=== PATIENT | female | born 1965 | race Two or more races ===

== ENCOUNTER 2016-08-25 16:02 | Emergency (ER) | payer MEDICAID ==
[~2016-08-25 16:02] MED LIST: AUGMENTIN 875-11 TAB PO; CARAFATE1 G2 PO; CIPRO500 MG PO; CLARITIN10 M8 PO; COLACE100 MG PO; COUMADIN5 MG PO; COUMADIN7.5 MG PO; CYCLOBENZAPRINE10 M1 PO; DOC-Q-LACE100 M2 PO; DULCOLAX10 MG/SUPP RC; FAMOTIDINE20 MG; FLEXERIL10 MG; FLEXERIL10 MG PO; GUAIFENESIN-COD10 ML PO; HYDROCODON-ACE1 EAC7 PO; HYDROCODON-ACE1 EACH PO; JANUVIA PO; JANUVIA100 M1 PO; LIDOCAIN PATCH; LORTAB 10/5001 EA PO; LYRICA75 MG PO; LYRICA75 MG/CAP PO; MACROBID100 MG/CAP PO; METFORMIN HCL500 M2 PO; METFORMIN PO; MIRALAX12 EA PO; MOBIC7.5 M1 PO; NEXIUM20 MG PO; NORCO 10-325 T1 EACH PO; NORCO 10/325 TA1 TAB PO; NORCO 5-325 TA1 EACH PO; NORCO 5/325 TAB1 TAB PO; NORCO 7.5/325 T1 TAB; NORCO 7.5/325 T1 TAB PO; OMEPRAZOLE20 M2 PO; OMEPRAZOLE20 M3 PO; PEN-VEE K500 MG PO; PERCOCET 5/3251 TAB PO; PREDNISONE20 M1 PO; Q-PAP325 MG PO; ROBITUSSIN COU118 M8 PO; SENNA LAX8.6 M1 PO; SENNA LAX8.6 MG PO; SINGULAIR10 M1 PO; SINGULAIR10 MG PO; SYNTHROID50 MC1 PO; TRAMADOL HCL50 MG PO; TYLENOL #31 TA2 PO; TYLENOL325 MG PO; ULTRAM50 MG PO; VENTOLIN HFA18 G2 PO; VICODIN 5/500 T1 TAB PO; WARFARIN SODIUM5 MG; ZITHROMAX250 M1 PO
[2016-08-25] MEDS ORDERED: QVAR8.7 G1 INH (16:48)
[2016-08-25] MEDS ORDERED: VITAMIN D350000 UNI1 PO (16:49)
[2016-08-25] MEDS ORDERED: FLUTICASONE PRO16 G1 (17:04)
[2016-08-25 17:19] LABS: BASO % 0.5 % (0-2); EOS % 2.1 % (0-7); EOSINOPHIL ABSOLUTE COUNT 0.2 tho/cmm (0.0-0.7); HCT-HEMATOCRIT 34.6 % (34.0-49.0); HGB-HEMOGLOBIN 11.4 gm/dl (12.0-15.5); IMMATURE GRANULOCYTES ABSOLUTE 0.01 tho/cmm (0-0.03); IMMATURE GRANULOCYTES PERCENT 0.1 % (0-0.3); LYMPH % 25.4 % (20-45); LYMPH ABSOLUTE COUNT 1.9 tho/cmm (0.8-4.5); MCH (MEAN CORPUSCULAR HGB) 28.9 pg (28.0-32.0); MCHC MEAN CORPUSCULAR HGB CONC 32.9 % (32.0-36.0); MCV (MEAN CELL VOLUME) 87.8 fl (82.0-96.0); MEAN PLATELET VOLUME 9.6 cmc (9.4-12.4); MONOCYTE ABSOLUTE COUNT 0.5 tho/cmm (0.0-1.2); NEUTROPHIL ABSOLUTE COUNT 4.7 tho/cmm (1.6-8.0); NEUTROPHIL-AUTOMATED 4.7 tho/cmm (1.6-8.0); NEUTROPHILS % 64.9 % (40-80); PLATELET COUNT 247 tho/cmm (150-450); RED BLOOD COUNT 3.94 mil/cmm (4.00-5.20); WHITE BLOOD COUNT 7.3 tho/cmm (4.0-10.0)
[2016-08-25 17:24] LABS: ANION GAP 13 mmol/L (0-20); BLOOD UREA NITROGEN 16 mg/dl (6-24); CARBON DIOXIDE-VENOUS 26 mmol/L (22-32); CHLORIDE 105 mmol/l (96-110); CREATININE 0.87 mg/dl (0.50-1.10); GLUCOSE 132 mg/dL (70-110); POTASSIUM 4.2 mmol/L (3.7-5.1); SODIUM 140 mmol/L (135-145); eGFR VALUE FOR BLACK >90 mL/Min
[2016-08-25] MEDS ORDERED: LIDODERM1 EACH TP (17:51)
== END 2016-08-25 18:08 ==
LOC: EDMED 16:02
PROVIDERS: Emergency Medicine
DX: M79.662 Pain in left lower leg (principal); E11.9 Type 2 diabetes mellitus without complications; I10 Essential (primary) hypertension; Z86.718 Personal history of other venous thrombosis and embolism; Z79.899 Other long term (current) drug therapy

== ENCOUNTER 2016-09-04 19:12 | Emergency (ER) | payer MEDICAID ==
[~2016-09-04 19:12] MED LIST changes: +FLUTICASONE PRO16 G1; +LIDODERM1 EACH TP; +QVAR8.7 G1 INH; +VITAMIN D350000 UNI1 PO
[2016-09-04] MEDS ORDERED: ERYTHROMYCIN1 GM LEFT EYE (20:03)
== END 2016-09-04 20:15 ==
LOC: EDMED 19:12
DX: H57.8 Other specified disorders of eye and adnexa (principal); Z86.718 Personal history of other venous thrombosis and embolism